=== PATIENT | female | born 1990 | race American Indian/Alaskan Native ===

== ENCOUNTER 2020-09-26 09:55 | Emergency (ER) | payer OTHER ==
[2020-09-26 10:04] VITALS: BP 123/89
[2020-09-26] MEDS ORDERED: METOCLOPRAMIDE 10 MG TAB PO ONE (11:19)
[2020-09-26] MEDS ORDERED: diphenhydrAMINE 25 MG CAP PO ONE (11:19)
[2020-09-26] MEDS ORDERED: BUTALB/ACETAMINOPHEN/CAFFEINE TAB PO ONE (11:19)
--- NOTE | 2020-09-26 11:19 | Event Note ---
ED Screening Note ED Screening Note: states she has a frontal MONROY that began three days ago took aleve, and rolan states she is currently on her menstrual cycle and believes this may have started the headache no n/v no fever no vision changes no numbness no weakness PMHx HTN no allergies to meds DC from [facility]
--- NOTE | 2020-09-26 11:20 | Emergency Department Report ---
ED Headache HPI - General Chief Complaint: Headache Stated Complaint: HEADACHE/STOAMCH PAIN Time Seen by Provider: 09/26/20 11:17 - History of Present Illness Initial Comments: pt is a 30 yo female who presents to the ED states she has a frontal MONROY that began three days ago took aleve, and nyquil states she is currently on her menstrual cycle and believes this may have started the headache no n/v/d states she has mild cramping secondary to menstural cycle but denies abd pain no fever no vision changes no numbness no weakness PMHx HTN no allergies to meds Allergies/Adverse Reactions: Allergies No Known Allergies Allergy (Unverified 09/26/20 10:04) Home Medications: Ambulatory Orders Butalb/Acetaminophen/Caffeine [Fioricet 50-300-40 mg CAP] 1 cap PO Q8HR PRN #12 cap 09/26/20 ED Review of Systems ROS: Stated complaint: HEADACHE/STOAMCH PAIN Other details as noted in HPI Comment: All other systems reviewed and negative ED Past Medical Hx - Past Medical History Hx Hypertension: Yes Hx Psychiatric Treatment: Yes (DEPRESSION) - Surgical History Past Surgical History?: Yes - Social History Smoking Status: Never Smoker Substance Use Type: None - Medications Home Medications: Home Medications Medication Instructions Recorded Confirmed Last Taken Type Butalb/Acetaminophen/Caffeine 1 cap PO Q8HR PRN #12 cap 09/26/20 Unknown Rx [Fioricet 50-300-40 mg CAP] ED Physical Exam - General Limitations: No Limitations General appearance: alert, in no apparent distress - Head Head exam: Present: atraumatic, normocephalic - Eye Eye exam: Present: normal appearance - ENT ENT exam: Present: mucous membranes moist - Respiratory Respiratory exam: Present: normal lung sounds bilaterally. Absent: respiratory distress, wheezes, rales, rhonchi, stridor, chest wall tenderness, accessory muscle use, decreased breath sounds, prolonged expiratory - Cardiovascular Cardiovascular Exam: Present: regular rate, normal rhythm, normal heart sounds. Absent: systolic murmur, diastolic murmur, rubs, gallop - GI/Abdominal GI/Abdominal exam: Present: soft, normal bowel sounds. Absent: distended, tenderness, guarding, rebound, rigid - Neurological Exam Neurological exam: Present: alert, oriented X3 - Psychiatric Psychiatric exam: Present: normal affect, normal mood - Skin Skin exam: Present: warm, dry, intact ED Course Vital Signs 09/26/20 09:59 Temperature 98.4 F Pulse Rate 95 H Respiratory 17 Rate Blood Pressure 123/89 O2 Sat by Pulse 99 Oximetry ED Medical Decision Making - Medical Decision Making pt is a 30 yo female who presents to the ED states she has a frontal MONROY that began three days ago took aleve, and nyquil states she is currently on her menstrual cycle and believes this may have started the headache no n/v/d states she has mild cramping secondary to menstural cycle but denies abd pain no fever no vision changes no numbness no weakness PMHx HTN no allergies to meds Vitals are normal. Patient has no abnormalities on physical examination as documented in chart. Patient has no focal neuro deficits. She is not having any thunderclap headache, no worst headache of life, no meningeal signs. Headache likely cyclical related to hormones from menstrual cycle. Patient given Fioricet, Reglan, Benadryl while in the emergency department her headache completely resolved and she was feeling much better and ready to go home. Patient given prescription for Fioricet. Advised patient Please take medication as prescribed as needed. Increase your water intake. Follow-up with your [facility]PR[facility]. Follow-up with your primary care doctor. Return to emergency room for any new or worsening symptoms. Critical care attestation.: If time is entered above; I have spent that time in minutes in the direct care of this critically ill patient, excluding procedure time. ED Disposition Clinical Impression: Headache Qualifiers: Headache type: unspecified Headache chronicity pattern: acute headache Intractability: not intractable Qualified Code(s): R51.9 - Headache, unspecified Disposition: DC-01 TO HOME OR SELFCARE Is pt being admited?: No Does the pt Need Aspirin: No Condition: Stable Instructions: Migraine Headache, [id number] Additional Instructions: Please take medication as prescribed as needed. Increase your water intake. Follow-up with your [facility]PRENTICE. Follow-up with your primary care doctor. Return to emergency room for any new or worsening symptoms. Prescriptions: Butalb/Acetaminophen/Caffeine [Fioricet 50-300-40 mg CAP] 1 cap PO Q8HR PRN #12 cap PRN Reason: headache Referrals: PRIMARY CARE,MD [Primary Care Provider] - 2-3 Days your, general production manager [Other] - 2-3 Days Time of Disposition: 12:45 Print Language: CHINESE
== END 2020-09-26 13:10 | disposition home or self-care (01) ==
LOC: EDBD → ED 09:55
DX: R51.9 Headache, unspecified (principal); I10 Essential (primary) hypertension; F32.9 Major depressive disorder, single episode, unspecified; Z79.899 Other long term (current) drug therapy
CPT/HCPCS: 99282